=== PATIENT | female | born 1950 | race Caucasian/White ===

== ENCOUNTER 2017-02-05 06:17 | Emergency (ER) | payer OTHER ==
[~2017-02-05] VITALS: Ht 154.9 cm; Wt 81.8 kg
[~2017-02-05 06:17] MED LIST: LOPRESSOR25 MG PO; TELM20TA PO
[2017-02-05 06:18] VITALS: BP 142/85; PULSE 56; RESP 16; O2SAT 99
--- NOTE | 2017-02-05 06:26 | ED.REPORT ---
HPI-Abd Pain F 40 and Over Date of Service Feb 05, 2017 ED Provider: Dr. Lynn 66 y/o female with a hx of diverticulitis presents to the ED complaining of RLQ abdominal pain, onset 2 weeks ago that radiates down her right thigh. Her pain was intermittent but became constant in the last two days. She states "it cast[place] and hurts so bad". Associated sx include constipation, intermittent hot flashes , chills and difficulty walking and bending due to the pain.She was unable to sleep due to the pain. She denies fever, nausea and dysuria. The pt recently had an abdominoplasty and believes her sx may be associated to it as the pain is just below the incision. She has never experienced similar sx before and reports her current symptoms are not like the sx she had when she was diagnosed with diverticulitis. The pt has been out of town and unable to seek medical attention. Currently her pain is 10/10 in severity. She took Tylenol with no relief. Nursing Notes Stated Complaint: RIGHT ABDOMINAL PAIN Chief Complaint: Female Abdominal Pain Nursing Notes Reviewed: Yes ([place] not reconciled) Allergies: Coded Allergies: Penicillins (Verified Allergy, Unknown, 02/05/17) Scheduled Metoprolol Tart-Expunged Drug, Do Not Renew! (Metoprolol Tart-Expunged Drug, Do Not Renew!) 25 Mg Tab 25 MG PO BID Telmisartan-Expunged Drug, Do Not Renew! (Micardis-Expunged Drug, Do Not Renew! ) 20 Mg Tablet 20 MG PO DAILY Scheduled PRN Ondansetron ODT (Ondansetron ODT) 8 Mg Tab.rapdis 8 MG PO Q4H PRN PRN For Nausea oxyCODONE-Acetaminophen 5-325 mg (oxyCODONE-Acetaminophen 5-325 mg) 1 Each Tablet 1-2 TAB PO Q6H PRN PRN For Pain General Time Seen by MD: 06:24 Chief Complaint Abdominal pain Hx Obtained From: Patient Arrived By: Walk-in Sudden in Onset?: Yes Onset Occurred: More than a week ago... (2 weeks) Symptom Duration: Since onset Location: : RUQ Quality: Burning, Painful Severity: Current: Pain level 10 out of 10 Severity: Maximum: Pain level 10 out of 10 Recent Healthcare: No recent doctor visit Similar Sx Previous: No Past Medical History Past Medical History Reports: Hypertension Reports: Diverticulitis Past Surgical History bilateral arthroscopic knee surgeries repair of trmalleolar left ankle fracture Gastric Sleeve Abdominoplasty Reports: Appendectomy, Cholecystectomy Smoking History Unknown if Ever Smoker Social History Other Social History: Good social support, Local resident Ambulatory Status Independent Review of Systems Reports: hot flashes Constitutional: Reports: Chills, Denies: Fever GI: Reports: Abdominal pain, Constipation, Denies: Nausea Female: Denies: Dysuria Complete sys rev & neg: except as marked. Physical Exam Vital Signs Vital Signs (First) Date Time Temp Pulse Resp B/P Pulse Ox O2 Delivery O2 Flow Rate FiO2 02/05/17 06:18 37 56 16 142/85 99 Initial VS: Reviewed, Vital signs normal Head / Eyes: Atraumatic, Normocephalic Neck: Supple, Non-tender, Full range of motion Extremities: Vascular intact, Neuro intact, No swelling, No tenderness Skin: Warm, Dry, No cyanosis Neurologic: Alert, Oriented, Nonfocal General/Constitutional: Awake, Alert, Cooperative Distress / Hydration: Positive: Distress moderate (moderate pain) Respiratory / Chest: Atraumatic, Breath sounds NL, No respiratory distress, No wheezing Cardiovascular: Heart rate NL, Regular rhythm, Peripheral circulation NL, Pulses = bilaterally Abdomen: Atraumatic, Soft, No guarding, No rebound Tenderness/Guarding/Rebound: Positive: McBurney's point tender Moderate right sided tenderness. No tenderness on left side. Back: Atraumatic, Full range of motion, Painless range of motion Interpretation & Diagnostics Lab Results Interpretation Result Diagram: 02/05/17 0637 02/05/17 0637 Test 02/05/17 06:00 02/05/17 06:37 02/05/17 07:01 Urine Color Dark yellow (YELLOW) Urine Appearance Slightly cloudy Urine pH 5.0 (5.0-8.0) Urine Specific [place] 1.046 (1.003-1.035) Urine Protein Negativemg/dL (NEG,TRACE) Urine Glucose (UA) Negativemg/dL (NEGATIVE) Urine Ketones Negativemg/dL (NEGATIVE) Urine Occult Blood Negative (NEGATIVE) Urine Nitrite Negative (NEGATIVE) Urine Bilirubin Negative (NEGATIVE) Urine Urobilinogen Normalmg/dL (NORMAL) Urine Leukocyte Esterase Negative (NEGATIVE) Urine RBC 11-50/hpf (0-2) Urine WBC 0-5/hpf (0-5) Urine Epithelial Cells Moderate/hpf (NONE-MOD) Urine Crystals Oxalic acid crystals (NONE Urine Bacteria Few/hpf (NONE-FEW) Urine Hyaline Casts None/lpf (NONE) Urine Granular Casts None seen (NONE SEEN) Urine Waxy Casts None seen (NONE SEEN) Urine Red Blood Cell Casts None seen (NONE SEEN) Urine White Blood Cell Casts None seen (NONE SEEN) Urine Mucus Present (None Seen) Urine Trichomonas None seen (NONE SEEN) Urine Yeast None (NONE SEEN) Urinalysis Comment None Urine Culture Reflexed Not indicated White Blood Count 7.0th/mm3 (3.8-10.1) Red Blood Count 5.00mil/mm3 (3.90-5.20) Hemoglobin 14.9g/dL (12.0-15.6) Hematocrit 45.8% (35.0-46.0) Mean Corpuscular Volume 91.6fL (81-100) Mean Corpuscular Hemoglobin 29.8pg (27.0-35.0) Mean Corpuscular Hemoglobin Concent 32.5% (32.0-37.0) Red Cell Distribution Width 13.9% (12.3-15.4) Platelet Count 203bil/L (150-400) Neutrophils (%) (Auto) 51.1% (40-74) Lymphocytes (%) (Auto) 35.5% (14-46) Monocytes (%) (Auto) 7.2% (4-12) Eosinophils (%) (Auto) 5.5% (0-5) Basophils (%) (Auto) 0.4% (0-3) Sodium Level 139mEq/L (134-144) Potassium Level 4.0mEq/L (3.5-5.2) Chloride Level 102mEq/L (97-108) Carbon Dioxide Level 25mmol/L (18-29) Blood Urea Nitrogen 22mg/dL (8-27) Creatinine 0.80mg/dL (0.57-1.00) Estimat Glomerular Filtration Rate 103mL/min (>59) Glucose Level 99mg/dL (60-99) Calcium Level 9.5mg/dL (8.5-10.1) Magnesium Level 1.9mg/dL (1.6-2.6) Total Bilirubin 0.5mg/dL (0.0-1.2) Aspartate Amino Transf (AST/SGOT) 16U/L (0-50) Alanine Aminotransferase (ALT/SGPT) 15U/L (0-32) Alkaline Phosphatase 82U/L (25-165) Total Protein 7.0g/dL (6.4-8.4) Albumin 3.6g/dL (3.4-5.0) Lipase 27U/L (13-60) Hold [place] Top Tube Received (Received) Lab Results Interpretation: CBC normal CMP normal Urine positive microscopic hematuria, no markers of infection, positive CT Abd / Pelvis Interpretation IMPRESSION: 1. The appendix is not definitely visualized, however, no secondary signs of appendicitis such as free fluid or inflammatory change noted adjacent to the cecum. 2. No free fluid or air. 3. No dilated loops of bowel. 4. Postsurgical changes. I. paracolic diverticulosis without evidence of diverticulitis. Dictated by: Danisha Faye MD, PhD on 02/05/2017 at 8:08 Approved by: Danisha Faye MD, PhD on 02/05/2017 at 8:15 Study type: Abdominal CT IV contrast Interpretation / Wet Read by: Interpret - Radiologist Re-Eval/Medical Decision Med Decision/Clinical Course This is a 66-year-old female presents with right-sided abdominal flank pain has been worse over the past number of days to week. She has no prior history of kidney stones or similar symptoms. She appears in significant pain on initial arrival, he also has some mild tenderness in the right lower quadrant without pily guarding or rebound. Workup was pursued, the patient required multiple titrated doses of pain medicine-but did improve. Blood work, urinalysis were negative except for mild hematuria. A CT scan abdomen and pelvis was negative for definitive pathology. It was a study with IV contrast, and while no stone was identified given her hematuria, right-sided flank pain and a small ureteral stone is in the differential and I am more suspicious that that may be the etiology. Appendix was visualized and appeared normal. The patient responded to therapy and is improved on reevaluation. At this point I suspect a small ureteral stone , I am not finding more dangerous etiology or need for additional testing, hospitalization. Patient is now much improved. The plan is discharge with conservative measures and follow-up with a PCP. Routine precautions reviewed Source of Hx: Old records Re-Evaluation/Progress #1: Time of Eval: 07:07 Patient Status: Condition improved Re-Evaluation/Progress Note: Rechecked pt. She reports some pain but overall feels significantly better. Re-Evaluation/Progress #2: Time of Eval: 10:03 Patient Status: Condition improved Re-Evaluation/Progress Note: Rechecked pt. Discussed lab results, imaging results, diagnosis and plan to discharge. Pt understands and agrees with the plan. F/U instructions and RTER warning given. All questions addressed. Differential Diagnosis: Positive: Acute abdominal pain, Urolithiasis, Negative: Abdominal aortic aneurysm, Acute coronary syndrome, Angina / CT, Cholangitis, Cholecystitis, Cholelithiasis, Diverticular disease, Dysmenorrhea, Ectopic preg ruptured, Ectopic , Esophageal rupture, Gun shot wound abdomen, Pancreatitis, Peritonitis, Urinary tract infection Counseled Regarding: Diagnosis, Lab results, Need for follow-up, When/why to return to ED Discharge & Departure Primary Impression: Flank pain Additional Impression: Hematuria Disposition: Home Discharge Condition All VS Reviewed: Yes Additional Instructions: 1. Your blood tests and CT scan were normal. 2. Your urine tests did have some microscopic blood, and I am suspicious that you may have a kidney stone in the ureter on the right side causing your symptoms. (We do not see a large stone, or kidney swelling/irritation - but with the IV contrast we used to help visualize the appendix and other internal organs we do not always see small stones. If it is a stone, it should pass with time.) 3. Drink plenty of fluids. 4. Take ibuprofen 400mg three times a days for pain. 5. If needed for more severe pain take oxycodone/APAP 5/325 1-2 tabs up to every 4-6 hours. NOTE: This medication contains a narcotic and causes drowsiness. No driving for at least 4 hours after taking. 6. Take ondansetron 8mg up to every 4 hours for nausea (let dissolve under tongue) IF needed. 7. Call for an appointment with Dr. Tobar for a recheck next week 8. Return to the ED if new or worsening symptoms. Referrals: Mundo Tobar DO (PCP) Scribe Attestation Portions of this note were transcribed by Kevin Pastrana. I, , personally performed the history, physical exam and medical decision- making;I reviewed and confirmed the accuracy of the information in the transcribed note. Signed by Rene Hill. 02/05/17 10:03 copies to: Mundo Tobar Matthew F MD Feb 05, 2017 06:25 Kevin Pastrana Feb 05, 2017 06:27
[2017-02-05] MEDS ORDERED: Ondansetron 2 mg/mL 2 mL Inj IVPUSH ONE (06:30)
[2017-02-05] MEDS: HYDROmorphone 0.5 mg/0.5 mL iSecure Syringe IVPUSH PRN ×5 (06:49→10:17)
[2017-02-05 06:53] LABS: BASOPHILS % (AUTO) 0.4 % (0-3); EOSINOPHILS % (AUTO) 5.5 % (0-5); MONOCYTES % (AUTO) 7.2 % (4-12); Mean Corpuscular Hemoglobin 29.8 pg (27.0-35.0); Mean Corpuscular Volume 91.6 fL (81-100); NEUTROPHILS % (AUTO) 51.1 % (40-74); Platelet Count 203 bil/L (150-400)
[2017-02-05 07:12] LABS: Magnesium 1.9 mg/dL (1.6-2.6)
[2017-02-05 07:39] LABS: APPEARANCE,URINE SLIGHTLY CLOUDY (CLEAR,HAZY); COLOR,URINE DARK YELLOW (YELLOW); OCCULT BLOOD,URINE NEGATIVE (NEGATIVE); UROBILINOGEN,URINE NORMAL (NORMAL)
--- NOTE | 2017-02-05 08:17 | DRSVH ---
PROCEDURE: CT ABDOMEN AND PELVIS WITH CONTRAST ([id number]) INDICATIONS: RLQ pain TECHNIQUE: After the administration of intravenous contrast, 5 mm thick sections acquired from the diaphragm to the symphysis. 5 mm coronal and sagittal reformats were acquired. For radiation dose reduction, the following was used: automated exposure control, adjustment of mA and/or kV according to patient siz e. COMPARISON: [facility] [place] , [place], ABD/PELVIS W/CON ([facility]), 04/19/2009, 15:11. FINDINGS: Image quality: Excellent. ABDOMEN: Lung bases: Lung bases are clear of acute opacities. 1.1 cm nodule in the right lung base is stable compared to prior examination.. Heart size is normal. Solid organs: Liver and spleen are normal in size and enhancement. Gallbladder is surgically absent . Biliary system is non dilated. Pancreas enhances normally. No adrenal nodules. Kidneys demonstr ate normal size and enhancement, without hydronephrosis. Peritoneum and bowel: Postsurgical changes compatible prior gastric bypass noted. Bowel loops demons trate normal wall thickness and caliber. Scattered colonic diverticula are noted without evidence of diverticulitis. No free fluid or air. The appendix is not definitely visualized, however, no secondar y signs of appendicitis are identified. Nodes and vessels: No retroperitoneal or mesenteric adenopathy by size criteria. Aorta and inferior vena cava are normal in size. Miscellaneous: Small, supraumbilical, ventral midline hernia is noted which contains unremarkable selina earing fat. Inflammatory stranding/scarring and surgical clips are noted in the anterior lower pelvic subcutaneous fat compatible with reported recent "tummy tuck" procedure. PELVIS: Genitourinary: Bladder wall thickness is normal. Uterus is absent. Miscellaneous: No inguinal hernias or adenopathy. Bones: No suspicious bony lesions. No vertebral body compression fractures. Spine degenerative disc disease and facet arthropathy. IMPRESSION: 1. The appendix is not definitely visualized, however, no secondary signs of appendicitis such as christian e fluid or inflammatory change noted adjacent to the cecum. 2. No free fluid or air. 3. No dilated loops of bowel. 4. Postsurgical changes. I. paracolic diverticulosis without evidence of diverticulitis. Dictated by: Danisha Faye MD, PhD on 02/05/2017 at 8:08 Approved by: Danisha Faye MD, PhD on 02/05/2017 at 8:15
[2017-02-05] MEDS ORDERED: 0.9% Sodium Chloride 1,000 ML IV ONE (08:40)
[2017-02-05] MEDS ORDERED: oxyCODONE-Acetamin 5-325 mg Tablet PO ONE (09:20)
[2017-02-05] MEDS ORDERED: ONDA8TAB10 PO (09:32)
[2017-02-05] MEDS ORDERED: OXYC1TAB24 PO (09:32)
[2017-02-05 10:17] VITALS: BP 120/65; PULSE 52
== END 2017-02-05 10:40 | disposition home or self-care (01) ==
LOC: SED 06:17
DX: R10.31 Right lower quadrant pain (principal); R31.9 Hematuria, unspecified; I10 Essential (primary) hypertension; Z90.49 Acquired absence of other specified parts of digestive tract; Z98.890 Other specified postprocedural states; Z98.84 Bariatric surgery status; Z90.89 Acquired absence of other organs; Z88.0 Allergy status to penicillin
CPT/HCPCS: 36415; 74177; 80053; 81000; 83690; 83735; 85025; 96361; 96374; 96375; 96376; 99285; J1170; J1885; J2405; J7030; Q9967